=== PATIENT | female | born 1995 | race Two or more races ===

== ENCOUNTER 2022-08-25 09:16 | Emergency (ER) | payer SELFPAY ==
[~2022-08-25] VITALS: Ht 167.6 cm; Wt 59.9 kg
[2022-08-25] MEDS ORDERED: LIDOCAINE 1% INJ 50 ML MDV IJ ONE (10:00)
[2022-08-25] MEDS ORDERED: LET SOLN TOPICAL 8 ML UDC TP ONE ×2 (11:30→11:34)
--- NOTE | 2022-08-25 11:30 | NUR ---
Prepared and readied for Incision and Drainage as per MD orders
--- NOTE | 2022-08-25 12:25 | NUR ---
Female device engineer accompanied female patient for (I&D ABCSSE ON LT VALA ).DONE AT BED SIDE AND PACKING done
[2022-08-25] MEDS ORDERED: CEPH500C2 PO (12:30)
[2022-08-25] MEDS ORDERED: SULF1TAB48 PO (12:30)
[2022-08-25] MEDS ORDERED: IBUP-1955 PO (12:30)
--- NOTE | 2022-08-25 12:37 | NUR ---
Patient discharged to home in stable condition. Written and verbal after care instructions given. Patient verbalizes understanding of instruction.
[2022-08-25 12:38] VITALS: BP 110/60
== END 2022-08-25 12:39 | disposition home or self-care (01) ==
LOC: ER 09:37
DX: N75.1 Abscess of Bartholin's gland (principal); N75.0 Cyst of Bartholin's gland
CPT/HCPCS: 99284; 56420; J3490